=== PATIENT | female | born 1945 | race Caucasian/White ===

== ENCOUNTER 2017-02-18 08:00 | Observation (INO) | payer OTHER ==
[~2017-02-18] VITALS: Ht 172.7 cm; Wt 80.7 kg
[2017-02-18] MEDS ORDERED: L20 PO (09:20)
[2017-02-18] MEDS ORDERED: ASAB PO (09:20)
[2017-02-18] MEDS ORDERED: PRIN20 PO (09:20)
[2017-02-18] MEDS ORDERED: LOP25 PO (09:21)
[2017-02-18] MEDS ORDERED: PREV15 PO (09:22)
[2017-02-19] MEDS ORDERED: L40 PO (08:46)
[2017-02-19] MEDS ORDERED: Z10 PO (08:49)
== END 2017-02-19 10:30 | disposition home or self-care (01) ==
LOC: SSU1 08:00 → CORLMH 08:00 → SSU1 08:45 → CORLMH 10:00 → SSU1 02-19 10:30
PROVIDERS: Internal Medicine Cardiovascular Disease
DX: I50.9 Heart failure, unspecified (principal); I48.91 Unspecified atrial fibrillation; R60.1 Generalized edema; J90 Pleural effusion, not elsewhere classified; I11.9 Hypertensive heart disease without heart failure; E87.1 Hypo-osmolality and hyponatremia; R94.5 Abnormal results of liver function studies; Z79.899 Other long term (current) drug therapy; Z88.6 Allergy status to analgesic agent; Z90.49 Acquired absence of other specified parts of digestive tract
CPT/HCPCS: 82803; 93005; 93460; 99152; 99153; A9270-GY; C1769; C1894; G0378; J2250; J3010; Q9967